=== PATIENT | female | born 1980 | race Caucasian/White ===

== ENCOUNTER 2018-12-30 17:22 | Emergency (ER) | payer OTHER ==
[2018-12-30 17:31] VITALS: BMI 32.9
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
[2018-12-30 23:21] VITALS: BP 111/71; PULSE 82; TEMP 98
== END 2018-12-30 21:00 | disposition home or self-care (01) ==
LOC: JERFT 17:22 → JER 17:22
DX: S39.012A Strain of muscle, fascia and tendon of lower back, initial encounter (principal); V43.52XA Car driver injured in collision with other type car in traffic accident, initial encounter; Y93.89 Activity, other specified; Y92.410 Unspecified street and highway as the place of occurrence of the external cause; O26.892 Other specified pregnancy related conditions, second trimester; Z3A.27 27 weeks gestation of pregnancy
CPT/HCPCS: 76815; 99281-25